=== PATIENT | female | born 1975 | race Two or more races ===

== ENCOUNTER 2025-01-26 10:16 | Inpatient (IN) | payer MEDICAID ==
[2025-01-20 12:18] LABS: Hematocrit 38.8 % (36.0-46.0); Hemoglobin 12.9 g/dL (12.2-16.2); Mean Corpuscular Hemoglobin 28.3 pg (28.0-32.0); Mean Corpuscular Volume 85.1 fL (80.0-100.0); Nucleated Red Blood Cells % 0.0 %
[2025-01-20 12:33] LABS: INR 0.93 (0.9-1.15); Partial Thromboplastin Time 26.0 SEC (24.5-34.5); Prothrombin Time 9.9 sec (9.3-11.8)
[2025-01-20 12:58] LABS: Urine Protein, UAD Negative (Negative)
[2025-01-20 12:59] LABS: Alanine Aminotransferase 15 U/L (7-40); Albumin 4.1 g/dL (3.2-4.8); Alkaline Phosphatase 73 U/L (46-116); Anion Gap 6 (5-15); BUN/Creatinine Ratio 23.1 (10.0-20.0); Blood Urea Nitrogen 15 mg/dL (9-23); Calcium 9.4 mg/dL (8.7-10.4); Carbon Dioxide 28 mmol/L (20-31); Chloride 106 mmol/L (98-107); Glucose 79 mg/dL (74-106); Potassium 4.3 mmol/L (3.5-5.1); Sodium 140 mmol/L (136-145); Total Protein 6.6 g/dL (5.7-8.2)
[2025-01-20 13:00] LABS: Bilirubin, Total 0.4 mg/dL (0.2-1.0)
[~2025-01-26] VITALS: Ht 160 cm; Wt 88.6 kg
[2025-01-26] MEDS: ceFAZolin 2 GM/D5W50ml 50 ML IV ONE (10:42)
[2025-01-26] MEDS: BUPIVACAINE 0.5% P/F INJ 10 ML VIAL ONE (11:07)
[2025-01-26] MEDS: LIDOCAINE 1% HCL (LOCAL ANESTH.) INJ 20ML MDV ONE (11:08)
[2025-01-26] MEDS ORDERED: CELECOXIB 100 MG CAP PO ONE (11:15)
[2025-01-26] MEDS ORDERED: ACETAMINOPHEN IV 1000 MG/100ML (10MG/ML) IV ONE (11:15)
[2025-01-26] MEDS ORDERED: GABAPENTIN 300 MG CAP PO ONE (11:15)
[2025-01-26] MEDS: BUPIVACAINE HCL 50 ML ONE (11:20)
[2025-01-26] MEDS ORDERED: KETOROLAC TROMETH 30 MG/ML 1ML VIAL ONE (11:40)
[2025-01-26] MEDS ORDERED: SUGAMMADEX 200mg/2ml Vial (100MG/ML) IV ONE (11:40)
[2025-01-26] MEDS ORDERED: ONDANSETRON HCL 4 MG/2 ML VIAL ONE (11:40)
[2025-01-26] MEDS ORDERED: LIDOCAINE 2% (LOCAL ANESTH.) PF 5ml SDV ONE (11:40)
[2025-01-26] MEDS ORDERED: GLYCOPYRROLATE 0.2 MG/ML 1ML VIAL ONE (11:41)
[2025-01-26] MEDS ORDERED: PROPOFOL 10 MG/ML 20 ML IV ONE (11:41)
[2025-01-26] MEDS ORDERED: ROCURONIUM 10MG/ML 10ML VIAL IV ONE (11:41)
[2025-01-26] MEDS ORDERED: LIDOCAINE HCL 2% TOP JELLY 5ML TOP ONE (11:41)
[2025-01-26] MEDS: GABAPENTIN 300 MG CAP ONE (11:55)
[2025-01-26] MEDS: CELECOXIB 100 MG CAP ONE (11:55)
[2025-01-26] MEDS: ACETAMINOPHEN IV 100 ML IV ONE (11:55)
[2025-01-26] MEDS ORDERED: fentaNYL CITRATE 100 MCG/2 ML VL ONE (12:46)
[2025-01-26] MEDS ORDERED: KETAMINE 50mg/ML 10ml Vial 10 ML ONE (12:46)
--- NOTE | 2025-01-26 13:55 | DVHOP2 ---
Operative Report - 2 Report Details Date: 01/26/25 Preop Diagnosis: 1. Right calcaneal bone spur 2. Right achilles tendonitis 3. Right foot pain Postop Diagnosis: Right achilles tendonitis, calcaneal bone spur Surgeon: Presley Donnelly MD Anesthesiologist: See anesthesia Anesthesia: General Implant: Arthrex speed bridge Consent: The patient was informed of the risks and benefits of the procedure. These include but are not limited to complications of anesthesia, postoperative infection, incomplete relief of symptoms, recurrence of symptoms, damage to blood vessels, nerves and tendons, deep venous thrombosis, pulmonary embolism and possible need for repeat surgery in the future. Complications: None Estimated Blood Loss: Minimal Fluids: See anesthesia Findings: Consistent with diagnosis Indications for Surgery: Worsening right foot pain Name of Procedure Performed 1. Right calcaneal bone spur excision 2. Right Achilles tendon repair Procedure Details Procedure Details: PRE-PROCEDURE INFORMATION: In the pre-op holding area, the extremity to be operated on was clearly marked and the patient verified correct laterality of the marking. The patient was transferred to the OR table and placed in a supine position. A timeout was performed in which identification of the correct pat ient, procedure, location, and materials was done. The right foot and leg were prepped and draped in normal sterile fashion. The foot and leg were exsanguinated and the thigh tourniquet was inflated to 250 mmHg. DESCRIPTION OF PROCEDURE: Attention was directed to the right posterior heel where a curvilinear incision was made over the posterior heel. Care was taken throughout dissection to avoid damage to neurovascular or tendinous structures. This incision was designed in a manner that, as the incision was deepened to the level of the Achilles, there were 2 flaps that were able to be opened and sutured down so as to be able to gain excellent exposure to the Achilles tendon. The peritenon was incised to be able to reveal the tendon, which appeared to have microtearing and fibrosis. All devitalized tissue and fibrosis was debrided off of the Achilles tendon. The Achilles was then detached from the posterior heel where the large exostosis was identified. Utilizing osteotomes, bone rasps, and other instrumentation, the exostosis of the posterior calcaneus was adequately resected. The area was smoothed down with bone rasps and revealed a normal posterior calcaneus after resection of the exostosis. Next, the Achilles tendon was reattached to the posterior calcaneus using the Arthrex SpeedBridge set consisting of bone anchors and the suture material. After the SpeedBridge set was used, the Achilles appeared to be well reattached to the posterior calcaneus and there appeared to be no immediate complications from that reattachment. All surgical wounds were irrigated copiously with saline and closed in layers with the aforementioned suture material. A dry sterile dressing was placed on the surgical extremity. The patient was placed in a _ POSTOPERATIVE INFORMATION: The patient tolerated the above noted procedure and anesthesia well and was transferred to the PACU with vital signs stable, and v ascular status intact with capillary refill intact to all digits. Postoperative instructions reviewed in detail with the patient with written instructions provided. Patient will return to clinic in approximately 10-14 days for first postoperative visit. Patient has the number of the clinic and was instructed to call prior to that time should any problems, questions, or concerns arise. Condition Good Disposition Home PRESLEY DONNELLY DPM Jan 26, 2025 13:55
[2025-01-26 13:56] VITALS: PULSE 51; RESP 10; O2SAT 99
[2025-01-26] MEDS ORDERED: hydrALAZINE HCL 20 MG/ML VL IV PRN (14:00)
[2025-01-26] MEDS ORDERED: FLUMAZENIL 0.1 MG/ML INJ 10ML MDV IV PRN (14:00)
[2025-01-26] MEDS ORDERED: NALOXONE HCL 0.4 MG/ML VIAL IV PRN (14:00)
[2025-01-26] MEDS ORDERED: ONDANSETRON HCL 4 MG/2 ML VIAL IV PRN (14:00)
[2025-01-26] MEDS: HYDROmorphone HCL 2 MG/ML VL/or syr IV PRN (14:10)
[2025-01-26] MEDS: fentaNYL CITRATE 100 MCG/2 ML VL IV PRN (14:35)
[2025-01-26] MEDS ORDERED: NITROGLYCERIN 0.4 MG SL TAB SL PRN (15:15)
[2025-01-26] MEDS ORDERED: MORPHINE SULFATE INJ 2 MG/ml SYRG IV PRN (15:15)
--- NOTE | 2025-01-26 16:35 | DVHHP2 ---
Review of Systems Allergies: Coded Allergies: NO KNOWN ALLERGIES (Unverified , 12/16/13) Medications Current Medications Medications Dose Ordered Sig/Jag Route Start Time Stop Time Status Last Admin Dose Admin Oxycodone HCl 10 mg ONCE PRN PO 01/26/25 14:00 01/26/25 14:30 10 MG Nitroglycerin 0.4 mg Q5MINP PRN SL 01/26/25 15:15 Morphine Sulfate 2 mg Q30M PRN IV 01/26/25 15:15 Exam Vital Signs Vital Signs Date Time Temp Pulse Resp B/P (MAP) Pulse Ox O2 Delivery O2 Flow Rate FiO2 01/26/25 16:00 56 16 136/80 (98) 100 01/26/25 15:00 Nasal Cannula 3.0 100 01/26/25 13:56 97.1 97.1 Labs/Xrays Labs Test 01/20/25 12:10 Range/Units White Blood Count 7.1 4.4-10.8 10^3/uL Red Blood Count 4.56 4.0-5.20 10^6/uL Hemoglobin 12.9 12.2-16.2 g/dL Hematocrit 38.8 36.0-46.0 % Mean Corpuscular Volume 85.1 80.0-100.0 fL Mean Corpuscular Hemoglobin 28.3 28.0-32.0 pg Mean Corpuscular Hemoglobin Concent 33.3 32.0-36.0 g/dL Red Cell Distribution Width 14.1 11.8-14.3 % Platelet Count 206 140-450 10^3/uL Mean Platelet Volume 7.9 6.9-10.8 fL Neutrophils (%) (Auto) 53.1 37.0-80.0 % Lymphocytes (%) (Auto) 34.2 10.0-50.0 % Monocytes (%) (Auto) 9.2 0.0-12.0 % Eosinophils (%) (Auto) 2.9 0.0-7.0 % Basophils (%) (Auto) 0.6 0.0-2.0 % Neutrophils # (Auto) 3.8 1.6-8.6 10 ^3/uL Lymphocytes # (Auto) 2.4 0.4-5.4 10 ^3/uL Monocytes # (Auto) 0.7 0-1.3 10 ^3/uL Eosinophils # (Auto) 0.2 0-0.8 10 ^3/uL Basophils # (Auto) 0 0-0.2 10 ^3/uL Nucleated Red Blood Cells 0.0 % Prothrombin Time 9.9 9.3-11.8 sec Prothrombin Time INR 0.93 0.9-1.15 Activated Partial Thromboplast Time 26.0 24.5-34.5 SEC Urine Color Light-orange Yellow Urine Clarity Cloudy H Clear Urine pH 6.0 5.0-9.0 Urine Specific [place] 1.020 1.001-1.035 Urine Protein Negative Negative Urine Ketones Negative Negative Urine Blood 3+ H Negative /uL Urine Nitrite Negative Negative Urine Bilirubin Negative Negative Urine Urobilinogen Normal Negative mg/dL Urine Leukocyte Esterase Negative Negative /uL Urine RBC 743 0 - 4 /hpf Urine Microscopic WBC 5 0-5 /HPF Urine Squamous Epithelial Cells Few <5 /hpf Urine Bacteria Few H None Seen /hpf Urine Glucose Normal Normal mg/dL Sodium Level 140 136-145 mmol/L Potassium Level 4.3 3.5-5.1 mmol/L Chloride Level 106 98-107 mmol/L Carbon Dioxide Level 28 20-31 mmol/L Anion Gap 6 5-15 Blood Urea Nitrogen 15 9-23 mg/dL Creatinine 0.65 0.550-1.02 mg/dL Glomerular Filtration Rate Calc 108 >90 mL/min BUN/Creatinine Ratio 23.1 H 10.0-20.0 Serum Glucose 79 74-106 mg/dL Calcium Level 9.4 8.7-10.4 mg/dL Total Bilirubin 0.4 0.2-1.0 mg/dL Aspartate Amino Transferase (AST) 18 <34 U/L Alanine Aminotransferase (ALT) 15 7-40 U/L Alkaline Phosphatase 73 46-116 U/L Total Protein 6.6 5.7-8.2 g/dL Albumin 4.1 3.2-4.8 g/dL Beta HCG, Quantitative 0.6 L 1.5-4.2 mIU/mL Assessment/Plan Assessment/Plan SEE DICTATED NOTE Plan discussed with: Patient My Orders Orders - MEDARDO COLÓN MD Procedure Category Date Status Time Admit ADMIT 01/26/25 Transmitted 15:01 Oxygen By Nasal RT 01/26/25 Transmitted Cannula 15:01 Nitroglycerin PHA 01/26/25 In Process Sublingual (Ntrostat 15:15 Morphine Sulfate PHA 01/26/25 In Process Injection 15:15 Stat Ekg For Chest RENETTA 01/26/25 In Process Pain 15:01 Notify Md Of Changes RENETTA 01/26/25 In Process From Base 15:01 Emergency Dysrhythmia RENETTA 01/26/25 In Process Protocol 15:01 Rhythm Strips Once RENETTA 01/26/25 In Process Every Shift 15:01 Hydromorphone PHA 01/26/25 Verified Injection (Dilaudid 16:45 Hydrocodone-Acet PHA 01/26/25 Verified 5/325mg Tab ([place]ett 16:45 Acetaminophen Tablet PHA 01/26/25 Verified (Tylenol Tablet) 16:45 Ondansetron Hcl PHA 01/26/25 Verified (Zofran) 16:45 Basic Metabolic Panel LAB 01/27/25 Verified 06:00 Complete Blood Count LAB 01/27/25 Verified 06:00 Date of Service: Jan 26, 2025 Billing Provider: MEDARDO COLÓN MD Common Visit Codes: [id number] INP/OBS CARE (HIGH) MEDARDO COLÓN MD Jan 26, 2025 16:35
[2025-01-26] MEDS ORDERED: ACETAMINOPHEN 325 MG TAB PO PRN (16:45)
[2025-01-26] MEDS ORDERED: HYDROmorphone HCL 2 MG/ML VL/or syr IV PRN (16:45)
[2025-01-26 17:00] VITALS: BP 128/80; PULSE 56; RESP 16; TEMP 97.7; O2SAT 98
--- NOTE | 2025-01-26 17:08 | DVHHP ---
ADMIT DATE: 01/26/2025 HISTORY OF PRESENT ILLNESS: The patient is a 49-year-old lady who has been admitted after she underwent surgery for a right Achilles tendon repair and bony spur surgery. The patient at this time complains of severe pain in the right foot. There is no chest pain, no shortness of breath, no nausea or vomiting. REVIEW OF SYSTEMS: Review of rest of systems otherwise currently negative. PAST MEDICAL HISTORY: No significant illness in the past. MEDICATIONS: She takes no medicine on a regular basis. ALLERGIES: No known drug allergies. SOCIAL HISTORY: Denies smoking, alcohol. Lives at home with her . FAMILY HISTORY: Negative. PHYSICAL EXAMINATION: GENERAL: The patient is awake and alert. VITAL SIGNS: Temperature of 97.1, pulse 56 per minute, blood pressure 145/82. SHEENT: Unremarkable. NECK: There is no JVD, no pedal edema. LUNGS: Equal bilaterally. No added sounds. CARDIOVASCULAR SYSTEM: S1 and S2 is regular with no murmurs. ABDOMEN: Soft. There is no organomegaly. NEUROLOGIC: Nonfocal. MUSCULOSKELETAL: The right foot is currently in dressing. ASSESSMENT AND PLAN: * Obesity. * Status post right Achilles tendon repair. * The patient will be placed on pain medications and observed overnight. MD SRINIVAS Pratt/RICHARD TID: [id number] RECEIPT: [id number]
[2025-01-26 18:14] VITALS: RESP 18
[2025-01-26 20:00] VITALS: PULSE 61; RESP 18; O2SAT 97
[2025-01-26 21:00] VITALS: BP 118/82; PULSE 61; RESP 18; TEMP 98.9; O2SAT 97
[2025-01-26] MEDS: ONDANSETRON HCL 4 MG/2 ML VIAL IV PRN (21:46)
[2025-01-26] MEDS: HYDROcodone-ACET 5/325MG TAB PO PRN (23:01)
[2025-01-27 01:00] VITALS: BP 96/62; PULSE 65; RESP 18; TEMP 99.8; O2SAT 97
[2025-01-27 05:00] VITALS: BP 98/66; PULSE 62; RESP 18; TEMP 99.4; O2SAT 97
[2025-01-27 06:56] LABS: Hematocrit 38.1 % (36.0-46.0); Hemoglobin 12.7 g/dL (12.2-16.2); Mean Corpuscular Hemoglobin 28.2 pg (28.0-32.0); Mean Corpuscular Volume 84.4 fL (80.0-100.0); Nucleated Red Blood Cells % 0.0 %
[2025-01-27 06:57] LABS: Potassium 4.1 mmol/L (3.5-5.1); Sodium 141 mmol/L (136-145)
[2025-01-27 06:58] LABS: Anion Gap 8 (5-15); Carbon Dioxide 25 mmol/L (20-31)
[2025-01-27 06:59] LABS: Calcium 9.4 mg/dL (8.7-10.4)
[2025-01-27 07:03] LABS: BUN/Creatinine Ratio 17.7 (10.0-20.0); Blood Urea Nitrogen 11 mg/dL (9-23)
[2025-01-27 07:05] LABS: Chloride 108 mmol/L (98-107); Glucose 110 mg/dL (74-106)
[2025-01-27 08:25] VITALS: PULSE 55; RESP 18; O2SAT 96
[2025-01-27 09:00] VITALS: BP 113/69; PULSE 55; RESP 18; TEMP 99.6; O2SAT 98
--- NOTE | 2025-01-27 10:53 | DVHDS2 ---
Discharge Summary Date of Admission Jan 26, 2025 at 15:01 Date of Discharge: Jan 27, 2025 Labs/Diagnostic Data: Laboratory Results Test 01/27/25 05:04 01/20/25 12:10 White Blood Count 9.9 10^3/uL (4.4-10.8) Red Blood Count 4.51 10^6/uL (4.0-5.20) Hemoglobin 12.7 g/dL (12.2-16.2) Hematocrit 38.1 % (36.0-46.0) Mean Corpuscular Volume 84.4 fL (80.0-100.0) Mean Corpuscular Hemoglobin 28.2 pg (28.0-32.0) Mean Corpuscular Hemoglobin Concent 33.5 g/dL (32.0-36.0) Red Cell Distribution Width 14.0 % (11.8-14.3) Platelet Count 230 10^3/uL (140-450) Mean Platelet Volume 8.5 fL (6.9-10.8) Neutrophils (%) (Auto) 79.1 % (37.0-80.0) Lymphocytes (%) (Auto) 14.3 % (10.0-50.0) Monocytes (%) (Auto) 6.5 % (0.0-12.0) Eosinophils (%) (Auto) 0.0 % (0.0-7.0) Basophils (%) (Auto) 0.1 % (0.0-2.0) Neutrophils # (Auto) 7.8 10 ^3/uL (1.6-8.6) Lymphocytes # (Auto) 1.4 10 ^3/uL (0.4-5.4) Monocytes # (Auto) 0.6 10 ^3/uL (0-1.3) Eosinophils # (Auto) 0 10 ^3/uL (0-0.8) Basophils # (Auto) 0 10 ^3/uL (0-0.2) Nucleated Red Blood Cells 0.0 % Sodium Level 141 mmol/L (136-145) Potassium Level 4.1 mmol/L (3.5-5.1) Chloride Level 108 mmol/L (98-107) Carbon Dioxide Level 25 mmol/L (20-31) Anion Gap 8 (5-15) Blood Urea Nitrogen 11 mg/dL (9-23) Creatinine 0.62 mg/dL (0.550-1.02) Glomerular Filtration Rate Calc 109 mL/min (>90) BUN/Creatinine Ratio 17.7 (10.0-20.0) Serum Glucose 110 mg/dL (74-106) Calcium Level 9.4 mg/dL (8.7-10.4) Prothrombin Time 9.9 sec (9.3-11.8) Prothrombin Time INR 0.93 (0.9-1.15) Activated Partial Thromboplast Time 26.0 SEC (24.5-34.5) Urine Color Light-orange (Yellow) Urine Clarity Cloudy (Clear) Urine pH 6.0 (5.0-9.0) Urine Specific [place] 1.020 (1.001-1.035) Urine Protein Negative (Negative) Urine Ketones Negative (Negative) Urine Blood 3+ /uL (Negative) Urine Nitrite Negative (Negative) Urine Bilirubin Negative (Negative) Urine Urobilinogen Normal mg/dL (Negative) Urine Leukocyte Esterase Negative /uL (Negative) Urine RBC 743 /hpf (0 - 4) Urine Microscopic WBC 5 /HPF (0-5) Urine Squamous Epithelial Cells Few /hpf (<5) Urine Bacteria Few /hpf (None Seen) Urine Glucose Normal mg/dL (Normal) Total Bilirubin 0.4 mg/dL (0.2-1.0) Aspartate Amino Transferase (AST) 18 U/L (<34) Alanine Aminotransferase (ALT) 15 U/L (7-40) Alkaline Phosphatase 73 U/L (46-116) Total Protein 6.6 g/dL (5.7-8.2) Albumin 4.1 g/dL (3.2-4.8) Beta HCG, Quantitative 0.6 mIU/mL (1.5-4.2) Other Laboratory Tests 01/27/25 05:04 Brief Hx & Hospital Course: SEE DICTATED NOTE Condition at Discharge: Good Final Diagnosis/Problems List Right achilles tendonitis, calcaneal bone spur Discharge Disposition: Home Discharge Instruct/Medications Diet: Regular Activity: Light activity Activity comment: Limited WBAT in boot Follow Up/Referral: 2 weeks Medications: Oxycodone 5mg Doxycycline 100mg No Active Prescriptions or Reported Meds Discharge Statement: "Patient was advised to return to the ER or call 911 if any headaches, dizziness, shortness of breath, chest pain, abdominal pain, bleeding, fevers, or worsening of medical condition. Patient was counseled about treatment plan, medications, possible side effects, patientverbalized understanding. All questions were answered to the best of my ability. This discharge took greater then 30 minutes in planning, reviewing documentation, counseling the patient, and discussing with other team members." ASSESSMENT ASSESSMENT Assessment Right achilles tendonitis, calcaneal bone spur Date of Service: Jan 27, 2025 Billing Provider: MEDARDO COLÓN MD Common Visit Codes: [id number] DISCH DAY >30min MEDARDO COLÓN MD Jan 27, 2025 10:53
--- NOTE | 2025-01-27 11:47 | DVHDS ---
DATE OF DISCHARGE: 01/27/2025 HISTORY OF PRESENT ILLNESS: The patient is a 49-year-old lady who was admitted after she underwent surgery on the right Achilles tendon for repair. HOSPITAL COURSE: The patient did well post surgery. The patient's chemistries are within normal limits. She has been cleared for discharge by Dr. Garcia. She will be discharged to resume her home medications and medications as per Podiatry. She will follow up with Podiatry in 2 weeks. FINAL DIAGNOSES: * Obesity. * Status post right Achilles tendon repair. Time spent in discharge planning and review of plan with the patient and marketing regional consultant was 37 minutes. MD SRINIVAS Pratt/AUGIE/BELINDA TID: [id number] RECEIPT: [id number]
[2025-01-27 13:00] VITALS: BP 116/81; PULSE 58; RESP 17; TEMP 97.9; O2SAT 96
[2025-01-28] MEDS ORDERED: DOXY100C79 PO ×2 (06:39)
[2025-01-28] MEDS ORDERED: OXY5T PO (11:36)
[2025-01-28] MEDS ORDERED: DOXY1CAP58 PO (11:36)
== END 2025-01-27 14:45 | disposition home or self-care (01) | DRG 314 ==
LOC: SUR 10:16 → OVERFLOW 15:01 → EAST 17:06
PROVIDERS: ADMIT Internal Medicine; ATTEND Internal Medicine
PROC: 0LMN0ZZ Reattachment of Right Lower Leg Tendon, Open Approach (ICD-10-PCS; 2025-01-26)
PROC: 0QBL0ZZ Excision of Right Tarsal, Open Approach (ICD-10-PCS; principal; 2025-01-26 12:49)
DX: M76.61 Achilles tendinitis, right leg (principal); E66.9 Obesity, unspecified; Z68.32 Body mass index [BMI] 32.0-32.9, adult; M77.31 Calcaneal spur, right foot; M89.9 Disorder of bone, unspecified
CPT/HCPCS: 36415; 80048; 80053; 81001; 84702; 85025; 85610; 85730; G0378; J0131; J0171; J1100; J1885; J2003; J2405; J2704; J3490

== ENCOUNTER 2025-01-28 10:38 | Emergency (ER) | payer MEDICAID ==
[~2025-01-28] VITALS: Ht 160 cm; Wt 83.2 kg
[~2025-01-28 10:38] MED LIST: DOXY100C79 PO
[2025-01-28 10:58] VITALS: BP 120/76; PULSE 61; RESP 16; TEMP 97.9; O2SAT 97
[2025-01-28] MEDS ORDERED: OXY5T PO (11:36)
[2025-01-28] MEDS ORDERED: DOXY1CAP58 PO (11:36)
--- NOTE | 2025-01-28 11:42 | ED.PDOC ---
History of Present Illness HPI Comments A 49 YEAR OLD FEMALE PRESENTS TO THE ED WITH A CHIEF COMPLAINT OF PRESCRIPTION S/P RIGHT ACHILLES TENDON SURGERY ON 01/26/25. PATIENT REPORTS THAT AFTER SURGERY, SHE DID NOT RECEIVE THE MEDICATION TO ALLEVIATE PAIN. PATIENT CAME TO THE ED FOR PRESCRIPTION MEDICATION, AND HAS NO FURTHER COMPLAINTS AT THIS TIME. PATIENT DENIES FEVER, CHILLS, SHORTNESS OF BREATH, CHEST PAIN, ABDOMINAL PAIN, NAUSEA, VOMITING, OR HEADACHE AT THIS TIME. PATIENT IS ALERT, ORIENTED X 4, AND HAS STEADY GAIT. Chief Complaint: Lower Extremity Time Seen by MD: 11:35 Primary Care Provider: hermilo Reviewed Notes: Nurses Notes, Medications, Allergies Allergies: Coded Allergies: NO KNOWN ALLERGIES (Unverified , 12/16/13) Home Meds Active Scripts Oxycodone Hcl (OXYCODONE HCL) 5 Mg Tb, 5 MG PO BID, #12 TAB Prov:COLT EDMONDS 01/28/25 Doxycycline (Monohydrate) (Doxycycline) 100 Mg Cap, 100 MG PO BID, #20 CAP Prov:COLT EDMONDS 01/28/25 Doxycycline (Monohydrate) (Doxycycline) 100 Mg Cap, 100 MG PO BID for 5 Days, #10 CAP Prov:FABY GONZALEZ RESIDENT 01/28/25 Information Source: Patient Mode of Arrival: Wheelchair Severity: Moderate Timing: Days (X2) Medication Refill: Ran out of Medication, For: Pain Past Medical History PAST MEDICAL HISTORY: Anxiety Surgical History: Appendectomy, , Tubal Ligation SAP BPC ARCHITECT History: No Pertinent SAP BPC ARCHITECT History Family History Family History: No family hx of Heart ameena, No family hx of HTN Social History Smoker: Non-Smoker Alcohol: Denies ETOH Use Drugs: Denies Drug Use Lives In: Home Constitutional: denies: chills, diaphoresis, fatigue, fever, malaise, sweats, weakness, others EENTM: denies: blurred vision, double vision, ear bleeding, ear discharge, ear drainage, ear pain, ear ringing, eye pain, eye redness, hearing loss, mouth pain, mouth swelling, nasal discharge, nose bleeding, nose congestion, nose pain, photophobia, tearing, throat pain, throat swelling, voice changes, others Respiratory: denies: cough, hemoptysis, orthopnea, SOB at rest, shortness of breath, SOB with excertion, stridor, wheezing, others Cardiovascular: denies: chest pain, dizzy spells, diaphoresis, Dyspnea on exertion, edema, irregular heart beat, left arm pain, lightheadedness, palpitations, PND, syncope, others Gastrointestinal: denies: abdomen distended, abdominal pain, blood streaked bowels, constipated, diarrhea, dysphagia, difficulty swallowing, hematemesis, melena, nausea, poor appetite, poor fluid intake, rectal bleeding, rectal pain, vomiting, others Genitourinary: denies: abnormal vagina bleeding, burning, dyspareunia, dysuria, flank pain, frequency, hematuria, incontinence, pain, , vagina discharge, urgency, others Neurological: denies: dizziness, fainting, headache, left sided numbness, left sided weakness, numbness, paresthesia, pre-existing deficit, right sided numbness, right sided weakness, seizure, speech problems, tingling, tremors, weakness, others Musculoskeletal: reports: joint pain, others (RIGHT POSTERIOR ANKLE PAIN. ); denies: back pain, gout, joint swelling, muscle pain, muscle stiffness, neck pain Integumetry: denies: bruises, change in color, change in hair/nails, dryness, laceration, lesions, lumps, rash, wounds, others Allergic/Immunocompromised: denies: Difficulty Healing, Frequent Infections, Hives, Itching, others Hematologic/Lymphatic: denies: anemia, blood clots, easy bleeding, easy br uising, swollen glands, others Endocrine: denies: excessive hunger, excessive sweating, excessive thirst, excessive urination, flushing, intolerance to cold, intolerance to heat, unexplained weight gain, unexplained weight loss, others Psychiatric: denies: anxiety, bipolar disorder, depression, hopeless, panic disorder, schizophrenia, sleepless, suicidal, others All Other Systems: Reviewed and Negative Physical Exam General Appearance: No Apparent Distress, Normal HEENT: Normal ENT Inspection, PERRL/EOMI, Pharynx Normal, TMs Normal Neck: Full Range of Motion, Non-Tender, Normal, Normal Inspection Respiratory: Chest Non-Tender, Lungs Clear, No Accessory Muscle Use, No Respiratory Distress, Normal Breath Sounds Cardiovascular: No Edema, No JVD, No Murmur, No Gallop, Normal Peripheral Pulses, Regular Rate/Rhythm Breast Exam: Deferred Gastrointestinal: No Organomegaly, Non Tender, No Pulsatile Mass, Normal Bowel Sounds, Soft Genitalia: Deferred Pelvic: Deferred Rectal: Deferred Extremities: Decreased range of motion, No calf tenderness, Normal capillary refill, No pedal edema, Tender (TENDERNESS ON RIGHT POSTERIOR ANKLE, NO SWELLING AND REDNESS. ) Musculoskeletal : Apperance: Normal Neurologic: Alert, fountain server II-XII nml as Tested, No Motor Deficits, Normal Affect, Normal Mood, No Sensory Deficits Cerebellar Function: Normal Reflexes: Normal Skin: Dry, Normal Color, Warm Peripheral Pulses: 2+ carotid (R), 2+ carotid (L), 2+ dorsalis pedis (R), 2+ d orsalis pedis (L) Lymphatic: No Adenopathy Was a procedure done? Was a procedure done?: No Differential Dx Considerations may include: RIGHT ANKLE PAIN, PAIN MANAGEMENT, PAIN MEDICATION REFILL X-Ray, Labs, Meds, VS Vital Signs Date Time Temp Pulse Resp B/P (MAP) Pulse Ox O2 Delivery O2 Flow Rate FiO2 01/28/25 10:58 97.9 61 16 120/76 (91) 97 97.9 X-Ray, Labs, Meds, VS Comment EXTERNAL MEDICAL RECORDS: NONE INDEPENDENT HISTORIANS: NONE SOCIAL DETERMINANTS OF HEALTH: NONE LABS ORDERED: NONE REVIEWED AND INTERPRETED RESULTS: NONE IMAGING ORDERED: NONE TREATMENTS ORDERED: NONE PATIENT'S CASE AND RESULTS HAVE BEEN DISCUSSED WITH THE ED ATTENDING PHYSICIAN, DR. GARCIA, AND THEY AGREE WITH MY PLAN OF CARE. RX: DOXYCYCLINE 100MG AND OXYCODONE 5MG I HAVE INSTRUCTED THE PATIENT TO FOLLOW UP WITH THEIR PCP IN 1-2 DAYS. THE PATIENT FULLY UNDERSTANDS THEIR RESULTS AND ARE AWARE THEY NEED TO FOLLOW UP WITH THEIR PCP FOR FURTHER EVALUATION IF SYMPTOMS WORSEN. Time of 1ST Reevaluation: 11:53 Reevaluation 1ST: Improved Patient Education/Counseling: Diagnosis, Treatment, Need For Follow Up Family Education/Counseling: Diagnosis, Treatment, Need For Follow Up Medical Screening: No EMC Exist At This Time SEPSIS Sepsis Screen Date sepsis recognized/suspect: Jan 28, 2025 Time Sepsis recognized/suspect: 1100 Recent Procedure: No On Antibiotic Therapy: No Respiratory Rate >20: No Heart Rate >90: No Temp<36 C (96.8 F) or >38.3 C: No SBP <90 or MAP <65 mmHG: No New Acute Mental Status Change: No Is the patient on CPAP, BIPAP,: No Vital Signs Date Time Temp Pulse Resp B/P (MAP) Pulse Ox O2 Delivery O2 Flow Rate FiO2 01/28/25 10:58 97.9 61 16 120/76 (91) 97 97.9 Departure 1 Departure Time of Disposition: 11:53 Impression: Primary Impression: Chronic pain of right ankle Additional Impression: Encounter for medication refill Disposition: HOME / SELF CARE / HOMELESS Condition: Stable Additional Instructions: FOLLOW-UP WITH PCP IN 1 TO 2 DAYS. TAKE MEDICATIONS PRESCRIBED. RETURN TO ED FOR ANY NEW OR WORSENING SYMPTOMS. e-Prescriptions Oxycodone Hcl (OXYCODONE HCL) 5 Mg Tb 5 MG PO BID, #12 TAB Prov: COLT EDMONDS 01/28/25 Doxycycline (Monohydrate) (Doxycycline) 100 Mg Cap 100 MG PO BID, #20 CAP Prov: COLT EDMONDS 01/28/25 Discharged With: Self Critical Care Note Critical Care Time?: No Stability Stability form required: No Heart Score Heart Score: Heart Score Response (Comments) Value History N/A 0 EKG N/A 0 Age N/A 0 Risk Factors N/A 0 Troponin N/A 0 Total 0 I personally scribed for COLT EDMONDS ([email or web address]) on 01/28/25 at 11:42. Electronically submitted by Gwen Ball ([email or web address]). I personally scribed for COLT EDMONDS ([email or web address]) on 01/28/25 at 11:45. Electronically submitted by Gwen Ball ([email or web address]). COLT EDMONDS Jan 28, 2025 11:42
== END 2025-01-28 11:41 | disposition home or self-care (01) ==
LOC: ER 10:38
DX: G89.29 Other chronic pain (principal); M25.571 Pain in right ankle and joints of right foot; F41.9 Anxiety disorder, unspecified; Z76.0 Encounter for issue of repeat prescription; Z90.49 Acquired absence of other specified parts of digestive tract; Z98.51 Tubal ligation status; Z79.899 Other long term (current) drug therapy; Z98.890 Other specified postprocedural states